=== PATIENT | female | born 1980 | race Caucasian/White ===

== ENCOUNTER 2017-05-23 18:51 | Emergency (ER) | payer SELFPAY ==
[~2017-05-23] VITALS: Ht 149.9 cm; Wt 51.8 kg
[2017-05-23] MEDS ORDERED: PERTUSS(ACELL),DIPH,TET VAC/PF 0.5 ML VIAL IM ONE (21:15)
[2017-05-23] MEDS ORDERED: HYDROCODONE/ACETAMINOPHEN 5-325 MG TABLET PO ONE (21:15)
[2017-05-23] MEDS ORDERED: LIDOCAINE HCL 1% 10 ML VIAL INJ ONE (22:00)
[2017-05-23] MEDS ORDERED: ONDANSETRON HCL 4 MG TABLET PO ONE (23:00)
[2017-05-23 23:05] VITALS: BP 117/79
== END 2017-05-23 23:14 | disposition home or self-care (01) ==
LOC: EMS 18:53
DX: S61.011A Laceration without foreign body of right thumb without damage to nail, initial encounter (principal); F17.210 Nicotine dependence, cigarettes, uncomplicated; W45.8XXA Other foreign body or object entering through skin, initial encounter; Y93.89 Activity, other specified; Y92.89 Other specified places as the place of occurrence of the external cause; Y99.8 Other external cause status
CPT/HCPCS: 12002; 90471; 90715; 99283; J3490; Q0162